=== PATIENT | female | born 1970 | race Caucasian/White ===

== ENCOUNTER 2024-03-14 10:24 | Emergency (ER) | payer BC ==
[~2024-03-14] VITALS: Ht 172.7 cm; Wt 68.1 kg
[2024-03-14] MEDS ORDERED: LOSARTAN POTASS25 MG PO (10:54)
[2024-03-14] MEDS ORDERED: AUGMENTIN 500-1 EACH PO (12:11)
[2024-03-14 12:28] VITALS: PULSE 96; RESP 16; TEMP 98.5; O2SAT 96
== END 2024-03-14 12:28 | disposition home or self-care (01) ==
LOC: FSED 10:35
DX: R20.0 Anesthesia of skin (principal); S00.33XA Contusion of nose, initial encounter; S00.81XA Abrasion of other part of head, initial encounter; W55.22XA Struck by cow, initial encounter; Y92.89 Other specified places as the place of occurrence of the external cause; J32.9 Chronic sinusitis, unspecified; I10 Essential (primary) hypertension; Z98.84 Bariatric surgery status; F17.210 Nicotine dependence, cigarettes, uncomplicated
CPT/HCPCS: 70486; 99283